=== PATIENT | male | born 1985 | race Caucasian/White ===

== ENCOUNTER 2020-08-28 15:01 | Observation (INO) | payer OTHER, SELFPAY ==
[~2020-08-28] VITALS: Ht 182.9 cm; Wt 85.7 kg
[2020-08-28 15:05] VITALS: BP 137/76
--- NOTE | 2020-08-28 15:32 | NUR ---
34/M presents to ED with c/o lower abdominal pain. Patient states he has intermitten 7/10 throbbing lower abdomen pain radiating to his RLQ and lower back. Patient states he took Ibuprofen at home no relief, denies fever, chills, nausea, vomiting or dysuria at this time. Patient states pain worsens when he attempts to eat, site is nontender to touch.
[2020-08-28] MEDS ORDERED: MORPHINE SULFATE 2 MG/ML SYR IVP ONE (15:35)
[2020-08-28] MEDS ORDERED: NACL 0.9% 1,000 ML IV SCH (15:35)
[2020-08-28] MEDS ORDERED: ONDANSETRON 4 MG/2 ML VIAL IVP ONE (15:35)
[2020-08-28 15:58] LABS: BASOPHILS # (AUTO) 0.1 K/uL (0.00-0.22); BASOPHILS % (AUTO) 0.6 % (0.0-2.0); EOSINOPHILS # (AUTO) 0.2 K/uL (0-0.4); EOSINOPHILS % (AUTO) 2.2 % (0.0-4.0); HEMATOCRIT 44.7 % (36-52); HEMOGLOBIN 14.8 g/dL (12.0-18.0); LYMPHOCYTES # (AUTO) 1.3 K/uL (2.0-11.5); LYMPHOCYTES % (AUTO) 11.5 % (20.5-51.1); MEAN CORPUSCULAR HEMOGLOBIN 29 pg (27-31); MEAN CORPUSCULAR HGB CONC 33 g/dL (33-37); MEAN CORPUSCULAR VOLUME 87.7 fL (80-94); MONOCYTES % (AUTO) 9.2 % (1.7-9.3); NEUTROPHILS # (AUTO) 8.4 K/uL (1.8-7.7); NEUTROPHILS % (AUTO) 76.5 % (42.2-75.2); PLATELET COUNT (AUTO) 185 K/uL (140-450); RED BLOOD CELL COUNT(AUTO) 5.09 MIL/uL (4.20-6.10)
--- NOTE | 2020-08-28 16:02 | NUR ---
Patient taken to CT via w/c
--- NOTE | 2020-08-28 16:14 | NUR ---
returned from CT
[2020-08-28 16:15] LABS: ALBUMIN 3.9 g/dL (3.4-5.0); ANION GAP 11.3 (8-16); CARBON DIOXIDE 24.7 mmol/L (21-32); CREATININE 1.3 mg/dL (0.6-1.3); TOTAL BILIRUBIN 1.2 mg/dL (0.0-1.0)
[2020-08-28] MEDS ORDERED: NACL 0.9% 1,000 ML IV ONE ×2 (16:45)
[2020-08-28] MEDS ORDERED: KETOROLAC 30 MG/ML VIAL IVP ONE (16:45)
[2020-08-28] MEDS ORDERED: cefTRIAXone 1,000 MG VIAL ONE (16:48)
[2020-08-28 17:14] LABS: BARBITURATE, URINE NEGATIVE ng/ml (NEG <=200); BENZODIAZEPINE, URINE NEGATIVE ng/mL (NEG <=200); CANNABINOID, URINE NEGATIVE ng/mL (NEG <=50); COCAINE, URINE NEGATIVE ng/mL (NEG <=300); PHENCYCLIDINE SCREEN,URINE NEGATIVE ng/mL (NEG <=25)
[2020-08-28 17:15] LABS: APPEARANCE,URINE CLEAR (CLEAR); BILIRUBIN,URINE NEGATIVE (NEGATIVE); BLOOD, URINE 1+ (NEGATIVE); COLOR,URINE YELLOW (YELLOW); LEUKOCYTE ESTERASE ,URINE NEGATIVE (NEGATIVE); NITRITE, URINE NEGATIVE (NEGATIVE); OPIATE, URINE POSITIVE ng/mL (NEG <=2000); UGLUCOSE NEGATIVE (NEGATIVE)
[2020-08-28 17:16] LABS: RBC,URINE 50-80 /HPF (0-5); WBC,URINE NONE SEEN /HPF (0-5)
--- NOTE | 2020-08-28 18:00 | NUR ---
RECEIVED REPORT FROM ER NURSE PT IS AAOX4 AMBULATORY, ROOM AIR. SKIN INTACT WITH CC LOWER ABDOMINAL PAIN RADIATING TO THE RIGHT LOWER QUADRANT OF THE BACK AND DIAGNOSIS OF ACUTE LEFT URETIC OBSTRUCTION AND NEPHROLITHIASIS NO NKOWN ALLERGIES AND NO HISTORY, IV INTACT ON LEFT AC CT DONE AND RESULTED TO KIDNEY STONES 6MM, ZOFRAN 4MG, MORPHINE 2 MG, TORADOL 2MG, ROCEPHIN 1000 MG GIVEN AND 2 LITER NS BOLUS GIVEN VITAL SIGNS STABLE.
--- NOTE | 2020-08-28 18:10 | NUR ---
Patient will be admitted to care of Dr. Das. Admited to Med/Surg. Will go to room 111A. Belongings list completed. Report to Teresa.
--- NOTE | 2020-08-28 18:20 | NUR ---
PT BROUGHT TO THE UNIT VIA WHEELCHAIR ASSISTED TO BED ORIENTED TO ROOM AND CHECK VITAL SIGNS BP 133/88 OR 101 RR 20 TEMP 97.7 O2 100%. SAFETY MEASURES IN PLACE AND CALL LIGHT WITHIN REACH. WILL CONTINUE TO MONITOR.
--- NOTE | 2020-08-28 19:29 | NUR ---
ENDORSED TO NIGHT NURSE FOR CONTINUITY OF CARE. PT IS STABLE.
--- NOTE | 2020-08-28 19:30 | NUR ---
RECEIVED MY ADMISSION PATIENT ALREADY IN THE ROOM 2 HOURS PRIOR TO MY ARRIVAL AND CLOCK IN. PATIENT WAS ALERT AND ORIENTED X 4, AMBULATES TO THE BATHROOM AND BACK WITH NORMAL GAIT, DENIES PAIN
--- NOTE | 2020-08-28 21:00 | NUR ---
UROLOGIST WAS IN THE ROOM WITH THE PATIENT, DISCUSSING THE OPTIONS TO ADDRESS PATIENTS PROBLEM
[2020-08-28] MEDS ORDERED: ACETAMINOPHEN 325 MG TAB PO PRN (21:15)
[2020-08-28] MEDS ORDERED: MAGNESIUM OXIDE 400 MG TAB PO PRN (21:15)
[2020-08-28] MEDS ORDERED: HYDROcodone/APAP 5/325 MG 1 TAB TAB PO PRN (21:15)
[2020-08-28] MEDS ORDERED: POTASSIUM CHLORIDE 10 MEQ TABER PO PRN (21:15)
[2020-08-28] MEDS ORDERED: KCL 20 MEQ/WATER INJ PREMIX 200 ML IV PRN (21:15)
[2020-08-28] MEDS: NACL 0.9% 1,000 ML IV SCH (21:15)
[2020-08-28] MEDS ORDERED: MORPHINE SULFATE 4 MG/ML SYR IVP PRN (21:15)
[2020-08-28] MEDS ORDERED: ONDANSETRON 4 MG/2 ML VIAL IVP PRN (21:15)
[2020-08-28] MEDS ORDERED: MAG SULF 2000 MG/WATER PREMIX 50 ML IV PRN (21:15)
--- NOTE | 2020-08-29 | NUR ---
RN MADE HIS MIDNIGHT ROUND PATIENT WAS AWAKE BUT CALM.
--- NOTE | 2020-08-29 01:00 | NUR ---
PATIENT WAS CALMLY ASLEEP.
--- NOTE | 2020-08-29 03:00 | NUR ---
PATIENT WAS CALMLY ASLEEP.
[2020-08-29 04:00] VITALS: BP 121/79
--- NOTE | 2020-08-29 06:44 | NUR ---
ALL REPORTS WERE GIVEN, TRANSFER OF CARE ENDORSED.
[2020-08-29 06:48] LABS: BASOPHILS % (AUTO) 0.4 % (0.0-2.0); EOSINOPHILS # (AUTO) 0.2 K/uL (0-0.4); EOSINOPHILS % (AUTO) 2.2 % (0.0-4.0); HEMATOCRIT 43.2 % (36-52); HEMOGLOBIN 14.2 g/dL (12.0-18.0); LYMPHOCYTES # (AUTO) 1.5 K/uL (2.0-11.5); LYMPHOCYTES % (AUTO) 14.1 % (20.5-51.1); MEAN CORPUSCULAR HEMOGLOBIN 29 pg (27-31); MEAN CORPUSCULAR HGB CONC 33 g/dL (33-37); MONOCYTES # (AUTO) 1.1 K/uL (0.8-1.0); NEUTROPHILS # (AUTO) 7.5 K/uL (1.8-7.7); NEUTROPHILS % (AUTO) 72.3 % (42.2-75.2); PLATELET COUNT (AUTO) 177 K/uL (140-450); RED BLOOD CELL COUNT(AUTO) 4.85 MIL/uL (4.20-6.10); RED CELL DISTRIBUTION WIDTH 13.6 % (11.6-13.7); WHITE BLOOD COUNT (AUTO) 10.4 K/uL (4.8-10.8)
[2020-08-29 06:53] LABS: ANION GAP 8.1 (8-16); CARBON DIOXIDE 27.1 mmol/L (21-32); CREATININE 1.5 mg/dL (0.6-1.3); POTASSIUM 4.2 mmol/L (3.5-5.1)
--- NOTE | 2020-08-29 07:05 | NUR ---
RECEIVED REPORT FROM ICE SELLER NURSE FOR CONTINUITY OF CARE. PT IS AWAKE AND ALERT, A&OX4. ON RA WITH BREATHING UNLABORED. PT IS AMBULATORY INDEPENDENTLY. SKIN IS WARM, DRY, AND INTACT. IV IS IN THE RIGHT AC 20 GAUGE RUNNING NS AT 80 ML/HR PER ORDER. PLAN OF CARE DISCUSSED. PT IS STABLE.
[2020-08-29 08:00] VITALS: BP 128/76
[2020-08-29] MEDS: NACL 0.9% 1,000 ML IV SCH (08:53)
--- NOTE | 2020-08-29 08:53 | NUR ---
IV FLUIDS COMPLETE. NEW BAG STARTED.
--- NOTE | 2020-08-29 09:00 | NUR ---
PATIENT HAS BEEN SCREENED AND CATEGORIZED LOW NUTRITION RISK. PATIENT WILL BE SEEN WITHIN 7 DAYS OF ADMISSION. 09/04/[address]
--- NOTE | 2020-08-29 09:30 | NUR ---
PT IS AWAKE AND WALKING AROUND IN ROOM. GAIT IS STEADY. NO DISTRESS NOTED. PT DENIES PAIN AT THIS TIME. INFORMED HIM TO COLLECT URINE SO WE CAN STRAIN IT FOR CALCULI. PT VERBALIZED UNDERSTANDING.
[2020-08-29] MEDS ORDERED: IBUP-1842 PO (09:57)
[2020-08-29] MEDS ORDERED: ACET-9525 PO (09:57)
[2020-08-29] MEDS ORDERED: TAMS0.4C96 PO (09:57)
[2020-08-29 11:01] VITALS: BP 128/76
--- NOTE | 2020-08-29 11:45 | NUR ---
PT WAS DISCHARGED AND STABLE. PT LEFT THE UNIT AMBULATING STEADILY. VS ARE STABLE. BREATHING IS UNLABORED. PT STATES HE DOES NOT HAVE PAIN. DISCHARGE INSTRUCTIONS WERE GIVEN AND PRESCRIPTION WAS GIVEN TO PT. PT VERBALIZED UNDERSTANDING. Addendum: 09/19/20 at 1218 by Tiffany Castellano RN IV FLUIDS WERE STOPPED AND COMPLETE.
[2020-08-30] MEDS ORDERED: TAMSULOSIN 0.4 MG CAP PO SCH (08:30)
== END 2020-08-29 11:45 | disposition home or self-care (01) ==
LOC: MED 15:01 → MTU 17:48
PROVIDERS: ADMIT Internal Medicine; ATTEND Internal Medicine
DX: N13.2 Hydronephrosis with renal and ureteral calculous obstruction (principal); Z20.822 Contact with and (suspected) exposure to COVID-19; N21.0 Calculus in bladder; J45.909 Unspecified asthma, uncomplicated; F17.200 Nicotine dependence, unspecified, uncomplicated; Z79.899 Other long term (current) drug therapy
CPT/HCPCS: 36415; 74176; 80048; 80053; 80305; 81001; 83605; 85025; 87040; 87081; 87426; 96361; 96365; 96375; 96376; 99285; G0378; G0482; J0696; J1885; J2270; J2405

== ENCOUNTER 2020-12-06 09:44 | Emergency (ER) | payer OTHER, SELFPAY ==
[~2020-12-06] VITALS: Ht 182.9 cm; Wt 68.0 kg
[~2020-12-06 09:44] MED LIST: ACET-9525 PO; IBUP-1842 PO; TAMS0.4C96 PO
--- NOTE | 2020-12-06 09:45 | NUR ---
Vijaya bassett in ED - 12/06/20 at 1003 by VALERIANO Patient ambulated to bed 04 with crutches.
[2020-12-06 09:48] VITALS: BP 137/83
--- NOTE | 2020-12-06 10:00 | NUR ---
pt amb to bed 4.
--- NOTE | 2020-12-06 10:00 | NUR ---
35 y/o M BIB self from home c/o toe pain x 3 days. Patient reports 2 days ago, patient working at [employer] when ~1500 a wooden pallet landed on his R foot 1st digit. Patient states it landed on his nail bed and began bleeding. Patient presents to the ER wanting evaluation with R foot 1st digit wrapped in gauze. +CMS +ROM +pedal pulses, no loss of sensation, numbness/tingling. Patient denies ankle or foot pain. Patient states no pain at this time; denies any medications prior to arrival. Last tetanus unknown. PMH/Sx/Meds: kidney stones NKA
--- NOTE | 2020-12-06 11:20 | NUR ---
Vijaya bassett in [facility] - 12/06/20 at 1122 [facility] Rodrigez is evaluating patient at bedside
--- NOTE | 2020-12-06 11:20 | NUR ---
Dr. Rodrigez at bedside evaluating patient.
[2020-12-06] MEDS ORDERED: IBUPROFEN 600 MG TAB PO ONE (11:25)
--- NOTE | 2020-12-06 11:30 | NUR ---
RAD at bedside
[2020-12-06] MEDS ORDERED: IBUP-2213 PO (11:50)
[2020-12-06] MEDS ORDERED: ACET-10509 PO (11:50)
[2020-12-06 11:55] VITALS: BP 128/72
--- NOTE | 2020-12-06 12:25 | NUR ---
RIGHT ORTHO SHOE MENS SZ LARGE APPLIED TO PATIENT'S RIGHT FOOT. PULSES +WNL BEFORE/AFTER APPLICATION. PATIENT TAUGHT HOW TO APPLY SHOE ON UTILIZING STRAPS. ALL QUESTIONS ANSWERED.
--- NOTE | 2020-12-06 12:31 | NUR ---
Patient discharged with v/s stable. Written and verbal after care instructions given and explained. Patient alert, oriented and verbalized understanding of instructions. Ambulatory with steady gait. All questions addressed prior to discharge. ID band removed. Patient advised to follow up with PMD. Rx of Tylenol, Ibuprofen given. Patient educated on indication of medication including possible reaction and side effects. Opportunity to ask questions provided and answered.
== END 2020-12-06 12:31 | disposition home or self-care (01) ==
LOC: MED 09:44
DX: S90.211A Contusion of right great toe with damage to nail, initial encounter (principal); J45.909 Unspecified asthma, uncomplicated; Z79.899 Other long term (current) drug therapy; W20.8XXA Other cause of strike by thrown, projected or falling object, initial encounter; Y93.89 Activity, other specified; Y92.89 Other specified places as the place of occurrence of the external cause; Y99.8 Other external cause status
CPT/HCPCS: 11740; 73660; 99284; Q0092